=== PATIENT | female | born 1980 | race Caucasian/White ===

== ENCOUNTER 2023-08-26 10:02 | Outpatient (CLI) | payer BC, SELFPAY ==
--- NOTE | ~2023-08-26 | MM_ITS ---
EXAMINATION: MM screening brigido BI w enoch HISTORY: Screening mammogram TECHNIQUE: Craniocaudal and mediolateral oblique 3-D tomosynthesis images were obtained and synthetic 2-D images were generated. CAD analysis was submitted and interpreted. COMPARISON: Baseline examination. No prior mammogram is available for comparison at this institution. BREAST PARENCHYMAL COMPOSITION: There are scattered areas of fibroglandular density. FINDINGS: There is no evidence of suspicious mass, calcification, or architectural distortion to sugg est malignancy in either breast. There has been no suspicious interval change. IMPRESSION: 1. No mammographic evidence of malignancy. 2. Recommend routine screening mammography in one year. BI-RADS Category 1: Negative Reviewed, dictated and finalized at location A.
== END 2023-08-26 10:03 | disposition home or self-care (01) ==
LOC: ANHIMG 10:07
PROVIDERS: Visit Provider Advanced Practice Midwife
DX: Z12.31 Encounter for screening mammogram for malignant neoplasm of breast (principal)
CPT/HCPCS: 77063; 77067

== ENCOUNTER 2024-12-18 14:26 | Outpatient (CLI) | payer BC, SELFPAY ==
--- NOTE | ~2024-12-18 | MM_ITS ---
EXAMINATION: MM screening brigido BI w enoch HISTORY: Screening TECHNIQUE: Craniocaudal and mediolateral oblique 3-D tomosynthesis images were obtained and synthetic 2-D images were generated. CAD analysis was submitted and interpreted. COMPARISON: Mammogram 08/26/2023 BREAST PARENCHYMAL COMPOSITION: There are scattered areas of fibroglandular density. FINDINGS: There is no evidence of suspicious mass, calcification, or architectural distortion to suggest malignancy. There has been no suspicious interval change. IMPRESSION: 1. No mammographic evidence of malignancy. Recommend routine screening mammography in one year. BI-RADS Category 2: Benign finding(s) Reviewed, dictated and finalized at location Q. IMPRESSION: 1. No mammographic evidence of malignancy. Recommend routine screening mammogra phy in one year. BI-RADS Category 2: Benign finding(s)
--- OUTSIDE RECORDS SUMMARY | 2024-12-18 14:31 | XMS_ITS | Clinical Summary ---
Author Organization [facility] Address [address] [place] [address] Phone Care Team Providers Care Manager Trading Name Role Phone Nanda Barron MD Primary Care Provider Allergies No known active allergies Medications multivitamin (DAILY-RAFAEL) tabletIndications:R outine follow-up,Cervical cancer screening,Special screening examination for human papillomavirus (HPV) Take 1 Tablet by mouth daily. Active Tri-Previfem, 28, 0.18/0.215/0.25 mg-35 mcg (28) tablet TAKE ONE TABLET BY MOUTH ONCE DAILY 84 Tablet 1 Active spironolactone (ALDACTONE) 50 mg tablet Take 1 Tablet (50 mg) by mouth daily. 90 Tablet 4 02/04/2023 2:46 PM CDT 3 Active ergocalciferol (VITAMIN D2) 50,000 unit capsule TAKE 1 CAPSULE BY MOUTH ONCE WEEKLY. 12 Capsule 3 12/21/2023 1:22 PM CDT 4 Active propranoloL (INDERAL) 10 mg tablet Take 1-2 tablets 1 hour before event as needed. Max 2 tablets per day. 24 Tablet 1 05/17/2024 12:18 PM ELECTRONIC COMPONENT PROCESSOR 5 Active Active Problems Problem Noted Date Diagnosed Date Well woman exam with routine gynecological exam 10/21/2018 Family history of congenital anomaly 01/22/2017 History of placental abnormality 01/01/2017 Previous delivery, antepartum 07/21/2014 Resolved Problems Problem Noted Date Diagnosed Date Resolved Date Amniotic fluid leaking 08/03/201708/03 S/P section 08/03/2017 05/04/2 018 Breech presentation, antepartum 07/09/2017 08/16/2017 Elderly multigravida in first trimester 01/01/2017 02/20/2017 Well woman exam with routine gynecological exam 08/30/2016 01/01/2017 RCS 11/9, girl 02/21/2015 08/30/2016 Third trimester bleeding, antepartum 01/04/2015 08/30/2016 Overview (01/18/2015): Anterior placenta Low-lying placenta in third trimester 12/22/2014 01/04/2015 Anemia complicating 12/12/2014 08/30/2016 History of 11/18/2014 018 Overview (01/01/2017): X 2 Vaginal bleeding in 10/27/2014 12/09/2014 Elevated AFP 09/29/2014 10/12/2014 Vaginal bleeding before 22 weeks gestation 09/23/2014 10/12/2014 VB known placenta previa (15 0-200 ebl, resolved), general, cEFM, BMZ 11/26 1999, [facility] 11/08 (vtx, aga, marginal placenta previa), O+, mfm 09/21/2014 12/22/2014 Overview (11/16/2014): Anterior marginal - repeat US end of Nov Abnormal AFP screen 09/17/2014 12/22/2014 Overview (09/21/2014): Normal anatomy at [facility] High-risk in third trimester 09/14/2014 08/30/2016 examination or chelita t, positive result 07/21/2014 09/14/2014 Overview (08/23/2014): Bleeding Mother's Day weekend Routine gynecological examination 12/12/2011 07/21/2014 Encounters Date Type Department Care Team Description 10/28/2024 External Device Data STL ABSTRACTION Provider, Abstract from Last 3 Months Immunizations Immunization Administration Dates Next Due (ADACEL/BOOSTRIX)(10 YR UP) TDAP VACCINE, 0.5ML, IM 05/20/2017,12/09/2014 INFLUENZA VACCINE QUADRIVALENT 3 YR UP PF IM Influenza Vaccine Split 3+ Yrs PF IM 12/09/2014 Family History Medical History Relation Name Comments Healthy Daughter Throat Cancer Father Diabetes Mother smoker, s/p col ectomy Heart Disease Mother Leukemia Other grandmother Healthy Son 1 Healthy Son 2 Breast Cancer Neg Hx Colon Cancer Neg Hx Ovarian Cancer Neg Hx Relation Name Status Comments Daughter Alive Father Mother Other grandmother Son 1 Alive Son 2 Alive Social History Tobacco Use Types Packs/Day Years Used Date Smoking Tobacco: Never Smokeless Tobacco: Never Alcohol Use Standard Drinks/Week Comments No 0 (1 standard drink = 0.6 oz pur e alcohol) occ Comments No Sex and Gender Information Value Date Recorded Sex Assigned at Not on file Legal Sex 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 Gender Identity Not on file Sexual Orientation Not on file Occupation Industry Job Start Date Job End Date Not on file Not on file Not on file Not on file Last Filed Vital Signs Vital Sign Reading Time Taken Comments Blood Pressure 112/60 01/07/2020 8:30 AM CDT Pulse 74 10/21/2018 2:24 PM CDT Temperature 36.6 C (97.9 F) 08/06/2017 6:56 AM CDT Respiratory Rate 16 08/06/2017 6:56 AM CDT Oxygen Saturation 97% 08/03/2017 12:45 PM CDT Inhaled Oxygen Concentration - - Weight 65.4 kg (144 lb 3.2 oz) 01/07/2020 8:30 A M CDT Height 160 cm (5' 3) 01/07/2020 8:30 AM CDT Body Mass Index 25.54 01/07/2020 8:30 AM CDT Plan of Treatment Health Maintenance Due Date Last Done Comments HEPATITIS B VACCINES (1 of 3 - 19+ 3-dose series) 11/22/1999 HPV VACCINES (1 - 3-dose SCD M series) 11/22/2007 BREAST CANCER SCREENING 2020 CERVICAL CANCER SCREENING 01/06/2021 PAP SMEAR 01/06/2021 01/07/2020, 07/0 12/2018, 09/13/2017, Additional history exists INFLUENZA VACCINE (#1) 2024 01/01/2017, 2014 HPV/Cotest (21-29) 01/06/2025 01/07/2020, 0 10/21/2018, 09/13/2017, Additional history exists HPV/Cotest (30-65) 01/06/2025 01/07/2020, 0 10/21/2018, 09/13/2017, Additional history exists DTAP/TDAP/TD VACCINES (3 - T d or Tdap) 05/20/2027 05/20/2017, 12/09/2014 Procedures Procedure Name Priority Date/Time Associated Diagnosis Comments CERV/VAG CYTO AGE BASED SCREEN PAP Routine 01/07/2020 8:41 AM CDT Well woman exam with routine gynecological exam Screening for HPV (human papillomavirus) Encounter for Papanicolaou smear for cervical cancer screening from Last 3 Months or Most Recently Relevant to Health Maintenance Results * CERV/VAG CYTO AGE BASED SCREEN PAP (01/07/2020 8:41 AM CDT) COMMENT (PAP): SEE COMMENT 0 10:40 AM CDT [facility] Comment: This order for age-based cervical cancer and STI screening follows ACOG guidelines(PB 168, 140, YUG916). See individual assays for performing site location. CLINICAL INFORMATION HEALTHY 01/12/2020 10:40 AM CDT [facility] LAST MENSTRUAL PERIOD INFORMATION NOT PROVIDED 01/12/2020 10:40 AM CDT [facility] PREV PAP: [id number] NIL 01/12/2020 10:40 AM CDT [facility] PREV BX: INFORMATION NOT PROVIDED 01/12/2020 10:40 AM CDT [facility] SOURCE Endocervix 01/12/2020 10:40 AM CDT [facility] ADEQUACY: SEE COMMENT 01/12/2020 10:40 AM CDT [facility] Comment: Satisfactory for evaluation. Endocervical/transformation zone component absent. Age and/or menstrual status not provided PAP INTERP Negative for intraepithelial lesion or malignancy. 01/12/2020 10:40 AM CDT [facility] COMMENT This Pap test has been evaluated with computer assisted technology. 01/12/2020 10:40 AM CDT [facility] HARPSICHORD MAKER: SEE COMMENT 2019 10:40 AM CDT [facility] Comment: BLG, CT(ASCP) CT screening location: [place] [address] [place] [address] EXPLANATORY NOTE SEE COMMENT 020 10:40 AM CDT [facility] Comment: EXPLANATORY NOTE: The Pap is a screening test for cervical cancer. It is not a diagnostic test and is subject to false negative and false positive results. It is most reliable when a satisfactory sample, regularly obtained, is submitted with relevant clinical findings and history, and when the Pap result is evaluated along with historic and current clinical information. HPV E6/E7 Not Detected Not Detected 01/12/2020 10:40 AM CDT [facility] Comment: This test was performed using the APTIMA HPV Assay ([employer] This assay detects E6/E7 viral messenger RNA (mRNA) from 14 high-risk HPV types (16,18,31,33,35,39,45,51,52,56,58,59,66,68). The analytical performance characteristics of this assay have been determined by [facility]. The modifications have not been cleared or approved by the FDA. This assay has been validated pursuant to the CLIA regulations and is used for clinical purposes. Genital SWAB OF ENDOCERVIX / Unknown Collection / Unknown 01/07/2020 8:41 AM CDT 01/07/2020 11:22 AM CDT Narrative [facility] - 01/12/2020 10:40 AM CDT Performing Organization Information: Site ID: [id number] [facility] Address: [address] [place] [id number] Director: Jeremy Pitts D.O., MPH Site ID: [id number] Name: [facility] Address: [address] [address] Director: Bárbara Nicole us Anamaria Colvin NP PATHOLOGY/CYTOLOGY ORDERABL ES Final Result [facility] [phone] from Last 3 Months or Most Recently Relevant to Health Maintenance Insurance [facility] OPTIONS PPO [id number] RX [employer] Commercial RX [employer] (INTERNAL) [facility] Internal Plans Advance Directives For more information, please contact: [phone] * Full Code (Latest Code Status on File) Date Activated Date Inactivated Comments 08/03/2017 2:04 PM 08/06/2017 2:04 PM * Full Code Date Activated Date Inactivated Comments 08/03/2017 8:38 AM 08/03/2017 12:18 PM * Full Code Date Activated Date Inactivated Comments 02/21/2015 12:52 PM 02/25/2015 1:36 PM * Full Code Date Activated Date Inactivated Comments 02/21/2015 6:29 AM 02/21/2015 12:52 PM * Full Code Date Activated Date Inactivated Comments 11/23/2014 5:43 PM 11/25/2014 4:02 PM Care Teams Manager Trading Relationship Specialty Start Date End Date Nanda Barron MD PCP - General Family Practice 04/28/13
--- OUTSIDE RECORDS SUMMARY | 2024-12-18 14:31 | XMS_ITS | Encounter Summary ---
Author Organization [facility] Address [address] [place] [address] Care Team Providers Care Upfitter Name Role Phone Nanda Barron MD Primary Care Provider [phone] Encounter Details Date Type Department Care Team (Late st Contact Info) Description 03/28/2007 Outpatient Historical HIS PATIENT IN A BED Saadia Carrizales MD NO ADDRESS ON FILE Social History Tobacco Use Types Packs/Day Years Used Date Smoking Tobacco: Never Assessed Comments Unknown Sex and Gender Information Value Date Recorded Sex Assigned at Not on file Legal Sex Female 5:29 AM BUSINESS INFORMATION MANAGER Gender Identity Not on file Sexual Orientation Not on file documented as of this encounter Plan of Treatment Not on file documented as of this encounter Procedures Procedure Name Priority Date/Time Associated Diagnosis Comments CBC WITH DIFFERENTIAL Routine 03/28/2007 4:25 PM BUSINESS INFORMATION MANAGER CBC WITH DIFFERENTIAL Routine 03/28/2007 4:25 PM BUSINESS INFORMATION MANAGER documented in this encounter Results * (ABNORMAL) CBC WITH DIFFERENTIAL (03/28/2007 4:25 PM BUSINESS INFORMATION MANAGER) NEUTROPHILS 88(H) 45 - 70 % INTERFAC E SYSTEM LYMPHOCYTES 7(L) 16 - 45 % INTERFAC E SYSTEM MONOCYTES 5 3 - 13 % INTERFACE SYSTEM EOSINOPHILS 0 0 - 7 % INTERFAC E SYSTEM BASOPHILS 0 0 - 2 % INTERFACE SYSTEM NEUTROPHIL ABSOLUTE 17.59(H) 1.90 - 7.00 K/uL INTERFACE SYSTEM LYMPHOCYTE ABSOLUTE 1.36 0.70 - 4.50 K/uL INTERFACE SYSTEM MONOCYTE ABSOLUTE 1.01 0.10 - 1.30 K/uL INTERFACE SYSTEM EOSINOPHIL ABSOLUTE 0.01 0.00 - 0.70 K/uL INTERFACE SYSTEM BASOPHILS ABSOLUTE 0.02 0.00 - 0.20 K/uL INTERFACE SYSTEM 03/28/2007 4:25 PM BUSINESS INFORMATION MANAGER Saadia Carrizales MD HEMATOLOGY ORDERABLES Edite d Performing Organization Address [facility] Phone Number INTERFACE SYSTEM Refer to clinic/hospital department * (ABNORMAL) CBC WITH DIFFERENTIAL (03/28/2007 4:25 PM BUSINESS INFORMATION MANAGER) WBC 20.0(H) 4.0 - 9.8 K/uL INTERFACE SYSTEM RBC 4.28 3.90 - 4.90 M/uL INTERFACE SYSTEM HEMOGLOBIN 12.4 11.8 - 14.8 g/dL INTERFACE SYSTEM HEMATOCRIT 35.7 35.5 - 44.0 % INTERFACE SYSTEM MCV 83.4 82.0 - 99.0 fL INTERFACE SYSTEM MCH 29.0 27.2 - 32.6 pg INTERFACE SYSTEM MCHC 34.7 31.5 - 35.5 % INTERFACE SYSTEM RDW 12.9 11.5 - 14.5 % INTERFACE SYSTEM RDW-STDEV 38.5 37.1 - 48.7 fL INTERFACE SYSTEM PLATELETS 217 140 - 350 K/uL INTERFACE SYSTEM MPV 10.4 9.3 - 12.4 fL INTERFACE SYSTEM 03/28/2007 4:25 PM BUSINESS INFORMATION MANAGER Saadia Carrizales MD HEMATOLOGY ORDERABLES Edite d Performing Organization Address [facility] de Phone Number INTERFACE SYSTEM Refer to clinic/hospital department documented in this encounter Visit Diagnoses Not on filedocumented in this encounter Care Teams Upfitter Relationship Specialty Start Date End Date Nanda aBrron MD PCP - General Family Practice 04/28/13 documented as of this encounter
== END 2024-12-18 14:27 | disposition home or self-care (01) ==
LOC: ANHFOHIMG 14:29
PROVIDERS: PCP Student in an Organized Health Care Education/Training Program; Visit Provider Obstetrics & Gynecology Gynecology
DX: Z12.31 Encounter for screening mammogram for malignant neoplasm of breast (principal)
CPT/HCPCS: 77063; 77067